=== PATIENT | female | born 1945 | race Caucasian/White ===

== ENCOUNTER 2022-05-17 11:16 | Emergency (ER) | payer OTHER, MEDICARE, SELFPAY ==
[2022-05-17 11:29] VITALS: BP 197/97; PULSE 75; RESP 36; TEMP 36.7; O2SAT 94; BMI 39.1
--- NOTE | 2022-05-17 11:44 | CRLHL7_ITS ---
For Patients: As a result of the Cures Act, medical imaging exams and procedure reports are released immediately into your electronic medical record. You may view this report before your referring provider. If you have questions, please contact your health care provider. INDICATION: Cough. TECHNIQUE: Chest 2 views. COMPARISON: Chest x-ray from 05/10/2021. FINDINGS: Lungs: Streaky interstitial opacities primarily in the right upper lobe. Pleura: No pleural effusion or pneumothorax. Heart and Mediastinum: The cardiomediastinal silhouette is enlarged. The vessels are unremarkable. Bones: Unremarkable. IMPRESSION: Right upper lobe opacity could be scarring or developing infection in the appropriate clinical setting. Dictated by Santana Oconnell MD @ 05/17/2022 1:41:30 PM (Electronically Signed)
--- NOTE | 2022-05-17 11:47 | ED_ITS ---
HPI - General Adult General Time Seen by Provider: 11:47 Date Seen: 05/17/22 Chief complaint: Shortness of Breath/Dyspnea Stated complaint: Shortness of breath Time Seen by Provider: 05/17/22 11:18 Source: patient Mode of arrival: ambulatory Limitations: no limitations History of Present Illness HPI narrative: Patient is a 77-year-old white female who has had a upper respiratory infection for the last few days, and has had some wheezing. She does not feel short of breath, or O2 sat is 94% on room air which is excellent. She reports she has no chronic respiratory or lung problems, she has had no chest pain, no leg swelling edema. She has been ambulatory without difficulty. No cyanosis. Denies leg swelling or edema. Related Data Home Medications Medication Instructions Recorded Confirmed levothyroxine 137 mcg capsule 137 mcg PO DAILY 05/17/22 05/17/22 losartan 50 mg tablet 50 mg PO DAILY 05/17/22 05/17/22 metoprolol tartrate 50 mg tablet 50 mg PO BID 05/17/22 05/17/22 multivitamin (Daily Multi-Vitamin 1 tab PO DAILY 05/17/22 05/17/22 tablet) Previous Rx's Medication Instructions Recorded doxycycline hyclate 100 mg capsule 100 mg PO BID #14 caps 05/17/22 prednisone 20 mg tablet 20 mg PO BID #10 tabs 05/17/22 Allergies Allergy/AdvReac Type Severity Reaction Status Date / Time No Known Drug Allergies Allergy Verified 05/17/22 11:29 Review of Systems Status of ROS: Reports: 6 or more systems reviewed and unremarkable except as noted in History and below Exam Narrative: Exam Narrative: Objective: The patient is a delightful lady who has stable vital signs other than slightly hypertensive, O2 sat is excellent at 94% on room air HEENT is unremarkable, throat clear, no facial asymmetry Neck is supple Chest shows some basilar wheezing, no rales Heart rhythm regular 2/6 systolic murmur Abdomen benign soft Extremities no edema Peripheral perfusion is good Skin is looks well perfused, no cyanosis Const: Vital Signs, click to edit/add: Vital Signs - 24 hr 05/17/22 11:29 Temperature 98.1 F Pulse Rate [Right Pulse Oximeter] 75 Respiratory Rate 36 H Blood Pressure [Ri ght Upper Arm] 197/97 H Pulse Oximetry 94 Oxygen Delivery Me thod Room Air Course Vital Signs Vital signs: Initial Vital Signs Temperature 98.1 F 05/17/22 11:29 Temperature Source Temporal Artery Scan 05/17/22 11:29 Pulse Rate 75 05/17/22 11:29 Respiratory Rate 36 H 05/17/22 11:29 Blood Pressure 197/97 H 05/17/22 11:29 Blood Pressure Mean 130 05/17/22 11:29 Blood Pressure Position Sitting 05/17/22 11:29 Pulse Oximetry 94 05/17/22 11:29 Oxygen Delivery Method 05/17/22 11:29 Vital Signs Temperature 98.1 F 05/17/22 11:29 Pulse Rate 75 05/17/22 11:29 Respiratory Rate 36 H 05/17/22 11:29 Blood Pressure 197/97 H 05/17/22 11:29 Pulse Oximetry 94 05/17/22 11:29 Oxygen Delivery Method 05/17/22 11:29 Temperature 98.1 F 05/17/22 11:29 Pulse Rate 75 05/17/22 11:29 Respiratory Rate 36 H 05/17/22 11:29 Blood Pressure 197/97 H 05/17/22 11:29 Pulse Oximetry 94 05/17/22 11:29 Oxygen Delivery Method 05/17/22 11:29 Medical Decision Making MDM Narrative Medical decision making narrative: Destiny is a very nice lady who has had an upper respiratory infection with some wheezing. There has been an extremely prominent amount of influenza COVID and RSV in the community. At this point her O2 sat is excellent and she feels like ?I am getting better?. Given her symptomology however I think an x-ray would be appropriate of her chest, will also get a triple swab of her nose, and give her prednisone 50 orally, followed by 20 b.i.d. for the next 5 days. She will foll ow up with regular doctor in the next 2 days, and return to ED sooner problems concerns worsening. She and her friend were comfortable plan was she will follow up as directed. She will inform her children who live in [place] about her status as well. Addendum: Patient by my read her x-ray shows questionable right upper lobe infiltrate, this could be just atelectasis as well or chronic scarring. Because of her symptomology however would cover her with doxycycline 100 b.i.d. x7 days as well as a prednisone. Recheck with regular doctor in couple of days, return to ED sooner problems or concerns. Lab Data Labs: Lab Results 05/17/22 Range/Units 11:45 SARS-CoV-2 (PCR) Negative SARS-CoV-2 (Negative) Influenza Type A (PCR) Negative PCR FLU A (Negative) Influenza Type B (PCR) Negative PCR FLU B (Negative) RSV (PCR) POSITIVE PCR RSV A (Negative) Discharge Plan Discharge Clinical Impression: Acute upper respiratory infection, Acute bronchospasm Patient Disposition: Home w/ Parent or Adult Condition: Stable Additional Instructions: Light activity, prednisone 2 times a day for the next 5 days, diet as tolerated, recheck with regular doctor in the next 2 days, return to ED sooner problems concerns worsening. Activity Level: Light activity Discharge Diet: Regular Prescriptions: New prednisone 20 mg tablet 20 mg PO BID Qty: 10 0RF doxycycline hyclate 100 mg capsule 100 mg PO BID Qty: 14 0RF No Action losartan 50 mg tablet 50 mg PO DAILY metoprolol tartrate 50 mg tablet 50 mg PO BID levothyroxine 137 mcg capsule 137 mcg PO DAILY multivitamin [Daily Multi-Vitamin] Tablet 1 tab PO DAILY Stand Alone Forms: [employer] Info Instructions
[2022-05-17] MEDS: predniSONE 10 MG TABLET 50 MG PO (12:06)
[2022-05-17 12:35] LABS: PCR FLU A Negative PCR FLU A (Negative); PCR FLU B Negative PCR FLU B (Negative); PCR RSV POSITIVE PCR RSV (Negative)
[2022-05-17 12:42] LABS: SARS PCR* Negative SARS-CoV-2 (Negative)
--- NOTE | 2022-05-17 12:45 | ED_ITS ---
HPI - General Adult General Chief complaint: Shortness of Breath/Dyspnea Stated complaint: Shortness of breath Time Seen by Provider: 05/17/22 11:18 Source: patient Mode of arrival: ambulatory Limitations: no limitations Related Data Home Medications Medication Instructions Recorded Confirmed levothyroxine 137 mcg capsule 137 mcg PO DAILY 05/17/22 05/17/22 losartan 50 mg tablet 50 mg PO DAILY 05/17/22 05/17/22 metoprolol tartrate 50 mg tablet 50 mg PO BID 05/17/22 05/17/22 multivitamin (Daily Multi-Vitamin 1 tab PO DAILY 05/17/22 05/17/22 tablet) Previous Rx's Medication Instructions Recorded doxycycline hyclate 100 mg capsule 100 mg PO BID #14 caps 05/17/22 prednisone 20 mg tablet 20 mg PO BID #10 tabs 05/17/22 Allergies Allergy/AdvReac Type Severity Reaction Status Date / Time No Known Drug Allergies Allergy Verified 05/17/22 11:29 Exam Const: Vital Signs, click to edit/add: Vital Signs - 24 hr 05/17/22 11:29 Temperature 98.1 F Pulse Rate [Right Pulse Oximeter] 75 Respiratory Rate 36 H Blood Pressure [Ri ght Upper Arm] 197/97 H Pulse Oximetry 94 Oxygen Delivery Me thod Room Air Course Vital Signs Vital signs: Initial Vital Signs Temperature 98.1 F 05/17/22 11:29 Temperature Source Temporal Artery Scan 05/17/22 11:29 Pulse Rate 75 05/17/22 11:29 Respiratory Rate 36 H 05/17/22 11:29 Blood Pressure 197/97 H 05/17/22 11:29 Blood Pressure Mean 130 05/17/22 11:29 Blood Pressure Position Sitting 05/17/22 11:29 Pulse Oximetry 94 05/17/22 11:29 Oxygen Delivery Method 05/17/22 11:29 Vital Signs Temperature 98.1 F 05/17/22 11:29 Pulse Rate 75 05/17/22 11:29 Respiratory Rate 36 H 05/17/22 11:29 Blood Pressure 197/97 H 05/17/22 11:29 Pulse Oximetry 94 05/17/22 11:29 Oxygen Delivery Method 05/17/22 11:29 Temperature 98.1 F 05/17/22 11:29 Pulse Rate 75 05/17/22 11:29 Respiratory Rate 36 H 05/17/22 11:29 Blood Pressure 197/97 H 05/17/22 11:29 Pulse Oximetry 94 05/17/22 11:29 Oxygen Delivery Method 05/17/22 11:29 Medical Decision Making MDM Narrative Medical decision making narrative: Patient is positive for RSV, her chest x-ray by my view shows some right sided infiltrate which could be related RSV but because of her wheezing and cough would cover her with doxycycline 100 b.i.d. x7 days as well as prednisone as mention. Follow up with regular doctor next couple of days return sooner problems or concerns to the ED. Lab Data Labs: Lab Results 05/17/22 Range/Units 11:45 SARS-CoV-2 (PCR) Negative SARS-CoV-2 (Negative) Influenza Type A (PCR) Negative PCR FLU A (Negative) Influenza Type B (PCR) Negative PCR FLU B (Negative) RSV (PCR) POSITIVE PCR RSV A (Negative) Discharge Plan Discharge Clinical Impression: Acute upper respiratory infection, Acute bronchospasm Patient Disposition: Home w/ Parent or Adult Condition: Stable Additional Instructions: Light activity, prednisone 2 times a day for the next 5 days, diet as tolerated, recheck with regular doctor in the next 2 days, return to ED sooner problems concerns worsening. Activity Level: Light activity Discharge Diet: Regular Prescriptions: New prednisone 20 mg tablet 20 mg PO BID Qty: 10 0RF doxycycline hyclate 100 mg capsule 100 mg PO BID Qty: 14 0RF No Action losartan 50 mg tablet 50 mg PO DAILY metoprolol tartrate 50 mg tablet 50 mg PO BID levothyroxine 137 mcg capsule 137 mcg PO DAILY multivitamin [Daily Multi-Vitamin] Tablet 1 tab PO DAILY Stand Alone Forms: [employer] Info Instructions
== END 2022-05-17 12:53 | disposition home or self-care (01) ==
LOC: ED 12:43
PROVIDERS: Emergency Provider Family Medicine
DX: J06.9 Acute upper respiratory infection, unspecified (principal); J98.01 Acute bronchospasm
CPT/HCPCS: 71046; 87502; 87634; 87635; 99284; J7512

== ENCOUNTER 2023-03-07 08:51 | Outpatient (CLI) | payer MEDICARE, OTHER, SELFPAY | END 2023-03-07 08:52 | disposition home or self-care (01) | LOC: AMB 04-10 14:54 | PROVIDERS: Visit Provider Emergency Medicine | DX: R53.1 Weakness (principal) | CPT/HCPCS: A0425; A0429 ==

== ENCOUNTER 2023-03-07 09:14 | Emergency (ER) | payer OTHER, MEDICARE, SELFPAY ==
[2023-03-07] VITALS (32 sets, daily range): BP systolic 145–223; BP diastolic 73–147; PULSE 72–82; RESP 20; TEMP 36.4; O2SAT 91–98; BMI 37.8
--- NOTE | 2023-03-07 09:38 | ED.NURSE ---
Dr. Elmore asked for staff to stand patient up. Patient was very unsteady and weak left leg. Dr. Elmore requested a code stroke. This was paged and went to CT.
--- NOTE | 2023-03-07 09:38 | CRLHL7_ITS ---
For Patients: As a result of the Century Cures Act, medical imaging exams and procedure reports are released immediately into your electronic medical record. You may view this report before your referring provider. If you have questions, please contact your health care provider. CLINICAL HISTORY: Headache, neck pain and dizziness. TECHNIQUE: CTA neck with contrast bolus tracking. 3D angiographic rendering using maximum intensity projection (MIP) and images permanently archived. COMPARISON: None available. FINDINGS: The great vessels are patent. The common carotid arteries are patent. The proximal ICAs are patent without signficant stenoses by NASCET criteria. The more distal cervical ICAs are patent. The origins of the vertebral arteries are patent. The cervical segments of the vertebral arteries are patent. IMPRESSION: Patent cervical arterial vasculature without hemodynamically significant luminal stenosis. Please note that all CT scans at this facility use dose modulation, iterative reconstruction, and/or weight-based dosing when appropriate to reduce radiation dose to as low as reasonably achievable. Dictated by Angel Szymanski MD @ 03/07/2023 1:17:42 PM (Electronically Signed)
--- NOTE | 2023-03-07 09:38 | CRLHL7_ITS ---
For Patients: As a result of the Century Cures Act, medical imaging exams and procedure reports are released immediately into your electronic medical record. You may view this report before your referring provider. If you have questions, please contact your health care provider. CLINICAL HISTORY: Neck pain, headache, and dizziness. TECHNIQUE: CTA head with contrast bolus tracking. 3D angiographic rendering using maximum intensity projection (MIP) and images permanently archived. COMPARISON: None available. FINDINGS: There is an eccentric filling defect within the left distal basilar trunk, centered at the origin of the left superior cerebellar artery, suspicious for intraluminal thrombus. The left superior cerebellar artery is not well opacified. The basilar tip and the posterior cerebral arteries are patent. The remainder of the intracranial vasculature is patent. No evidence of cerebral aneurysm. IMPRESSION: Nonocclusive thrombus within the distal left basilar trunk, centered at the origin of the left superior cerebellar artery, and with poor opacification of the superior cerebral artery itself. Please note that all CT scans at this facility use dose modulation, iterative reconstruction, and/or weight-based dosing when appropriate to reduce radiation dose to as low as reasonably achievable. Dictated by Angel Szymanski MD @ 03/07/2023 1:24:29 PM (Electronically Signed)
--- NOTE | 2023-03-07 09:38 | CRLHL7_ITS ---
For Patients: As a result of the Century Cures Act, medical imaging exams and procedure reports are released immediately into your electronic medical record. You may view this report before your referring provider. If you have questions, please contact your health care provider. INDICATION: DIZZINESS TECHNIQUE: Head CT without contrast. COMPARISON: None. FINDINGS: Image quality is slightly degraded due to motion artifact and streak artifact. No intracranial hemorrhage or extra-axial fluid collection. No midline shift. Patent basal cisterns. No evidence of territorial infarct. There are nonspecific low attenuation white matter changes consistent with chronic microvascular disease. The visualized paranasal sinuses and mastoid air cells demonstrate no acute or significant findings. The visualized orbits are grossly unremarkable. No skull fractures. IMPRESSION: No evidence of acute intracranial abnormality. Specifically, no evidence of acute intracranial hemorrhage. Findings discussed DR. DUVALL at 9:57 a.m. Please note that all CT scans at this facility use dose modulation, iterative reconstruction, and/or weight-based dosing when appropriate to reduce radiation dose to as low as reasonably achievable. Dictated by Cristiano Kaplan MD @ 03/07/2023 10:00:49 AM (Electronically Signed)
--- NOTE | 2023-03-07 09:54 | ED_ITS ---
HPI - General Adult General Date Seen: 03/07/23 Chief complaint: Neuro Symptoms/Altered Deficit Stated complaint: Dizziness Time Seen by Provider: 03/07/23 09:24 Source: patient, EMS and RN notes reviewed Mode of arrival: EMS Limitations: no limitations History of Present Illness HPI narrative: Patient is a very pleasant 77-year-old woman who says she woke up this morning in her usual state of health. She got up, went to the bathroom, says she was in the bathroom when she noted sudden onset of feeling wobbly and off balance. She says she has had tinnitus for many years, it sounds like cicadas in general and she says she barely even notices it any more. However, at the time of onset of her feeling off balance, she noted an abrupt change in the tenderness such that it became more of an electrical hum. She does not note changes in hearing. She feels better she is lying still, but she was not able to walk, she has felt down, denies injuries. She does not have a headache, denies recent trauma. She does have some mild nausea, no vomiting. She has a history of hypertension for which she takes medications, she denies any history of prior stroke, coronary artery disease or other vascular disease, she does not have diabetes. No known AFib. Related Data Home Medications Medication Instructions Recorded Confirmed levothyroxine 137 mcg capsule 137 mcg PO DAILY 05/17/22 05/17/22 losartan 50 mg tablet 50 mg PO DAILY 05/17/22 05/17/22 metoprolol tartrate 50 mg tablet 50 mg PO BID 05/17/22 05/17/22 multivitamin (Daily Multi-Vitamin 1 tab PO DAILY 05/17/22 05/17/22 tablet) Previous Rx's Medication Instructions Recorded doxycycline hyclate 100 mg capsule 100 mg PO BID #14 caps 05/17/22 prednisone 20 mg tablet 20 mg PO BID #10 tabs 05/17/22 Allergies Allergy/AdvReac Type Severity Reaction Status Date / Time No Known Drug Allergies Allergy Verified 05/17/22 11:29 Review of Systems Status of ROS: Reports: 6 or more systems reviewed and unremarkable except as noted in History and below Exam Narrative: Exam Narrative: Vital signs reviewed, markedly hypertensive on arrival. In general, alert, nontoxic elderly woman. Head: Normocephalic, atraumatic. Eyes: Pupils are equal reactive, some vertigo noted on rightward gaze, ex traocular movements intact. ENT: No facial trauma. Neck: Supple, no bruits. Heart: Regular rate and rhythm, no murmur. Lungs: Clear, no increased work breathing. Abdomen: Soft and nontender. Extremities: No edema, pulses intact x4. Neurologic: Patient is alert, conversant, speech was normal at the time of my initial exam. Face symmetric. Strength equal in upper and lower extremities without drift. Ataxia in left arm and left leg with finger-nose and heel-ferguson testing. Attempted to have her stand and walk with a walker, she is able to take a step with her right leg, not able to coordinate movement of her left leg. Skin: Warm dry well perfused. Affect normal Const: Vital Signs, click to edit/add: Vital Signs - 24 hr 03/07/23 09:25 03/07/23 09:26 03/07/23 09:30 Temperature Pulse Rate 75 78 75 Pulse Rate [Pulse Oximeter] Respiratory Rate Blood Pressure 196/107 H Blood Pressure [Le ft Upper Arm] Pulse Oximetry 91 95 96 Oxygen Delivery Ks thod 03/07/23 09:38 03/07/23 09:39 03/07/23 09:44 Temperature 97.6 F Pulse Rate Pulse Rate [Pulse Oximeter] 75 Respiratory Rate 20 Blood Pressure 204/123 H Blood Pressure [Le ft Upper Arm] 223/110 H Pulse Oximetry 94 94 [facility] 03/07/23 09:56 03/07/23 09:57 03/07/23 10:00 Temperature Pulse Rate 77 76 74 Pulse Rate [Pulse Oximeter] Respiratory Rate Blood Pressure 145/103 H Blood Pressure [Le ft Upper Arm] Pulse Oximetry 96 97 95 Oxygen Delivery Ks thod 03/07/23 10:03 03/07/23 10:03 03/07/23 10:15 Temperature Pulse Rate 74 72 Pulse Rate [Pulse Oximeter] Respiratory Rate Blood Pressure 166/147 H Blood Pressure [Le ft Upper Arm] Pulse Oximetry 95 94 96 [facility] 03/07/23 10:16 03/07/23 10:17 03/07/23 10:22 Temperature Pulse Rate 73 75 72 Pulse Rate [Pulse Oximeter] Respiratory Rate Blood Pressure 175/91 H 158/98 H Blood Pressure [Le ft Upper Arm] Pulse Oximetry 91 94 95 Oxygen Delivery Me thod 03/07/23 10:27 03/07/23 10:30 03/07/23 10:32 Temperature Pulse Rate 80 81 79 Pulse Rate [Pulse Oximeter] Respiratory Rate Blood Pressure 162/111 H 169/87 H Blood Pressure [Le ft Upper Arm] Pulse Oximetry 93 92 93 Oxygen Delivery Me thod 03/07/23 10:33 03/07/23 11:10 03/07/23 11:12 Temperature Pulse Rate 78 81 Pulse Rate [Pulse Oximeter] Respiratory Rate Blood Pressure 173/73 H Blood Pressure [Le ft Upper Arm] Pulse Oximetry 93 94 Oxygen Delivery Me thod 03/07/23 11:15 03/07/23 11:16 03/07/23 11:22 Temperature Pulse Rate 79 79 81 Pulse Rate [Pulse Oximeter] Respiratory Rate Blood Pressure 157/83 H 156/80 H Blood Pressure [Le ft Upper Arm] Pulse Oximetry 94 93 94 Oxygen Delivery Me thod Course Course ED Course: Patient arrived via EMS, vertigo not otherwise specified. Following my exam I d id call a stroke code, spoke with Dr. Donnelly with [facility] on-call for Neurology. She had aspirin 324 mg p.o.. Patient went for head CT without which by my review did not show hemorrhage, read as negative by Radiology. Neurology evaluated the patient as well, agreed with diagnosis of stroke. NIH stroke scale of 2, for 2 limb ataxia. Risks and benefits of tenecteplase were discussed with the patient and her son including small risk of intracranial hemorrhage. She agreed to proceed, did not have any limiting contraindications. She was given tenecteplase 22.5 mg IV. During her initial time in the emergency department, she complained of feeling worse in a nonspecific way, had more nausea, was given Zofran, then she said that she felt like she needed to have diarrhea. We were able to get her up to the commode and she did have a large volume of nonbloody diarrhea. She went over for CT angiogram of the head and neck after that. Continues to complain of some nausea in general GI upset. I am going to try giving her some metoclopramide along with a small dose of Benadryl to see if that helps her to feel better. She has had no point complained of headache. Her speech was mildly dysarthric when I went into evaluate her at 1 point, and her son says that is how she sounded earlier today, though this symptoms seems to wax and wane a little bit. Awaiting bed placement at [facility] where she has been accepted by the manager access. Patient had an EKG here which showed a normal sinus rhythm, she does have some inferior biphasic T-waves and ST depression, this looks unchanged compared to an EKG here in October of 2020. Troponin is less than 0.1. CBC is normal, hemoglobin is 13.9, coags are normal, metabolic panel is normal, blood sugar 133. LFTs unremarkable. Critical care time 60 minutes Vital Signs Vital signs: Initial Vital Signs Pulse Rate 75 03/07/23 09:25 Pulse Oximetry 91 03/07/23 09:25 Vital Signs Pulse Rate 75 03/07/23 09:25 Pulse Oximetry 91 03/07/23 09:25 Temperature 97.6 F 03/07/23 09:44 Pulse Rate 81 03/07/23 11:22 Respiratory Rate 20 03/07/23 09:44 Blood Pressure 156/80 H 03/07/23 11:22 Pulse Oximetry 94 03/07/23 11:22 Oxygen Delivery Method Room Air 03/07/23 09:44 Medical Decision Making Lab Data Labs: Lab Results 03/07/23 Range/Units 09:25 WBC 9.39 (4.50-11.00) K/uL RBC 4.32 (4.00-5.20) m/uL Hgb 13.9 (12.0-16.0) gm/dL Hct 42.4 (33.0-51.0) % MCV 98 (80-100) fL MCH 32 (26-34) pg MCHC 33 (32-36) gm/dL RDW Coeff of [place] 12.8 (11.5-15.5) % Plt Count 274 (140-440) K/uL Neut % (Auto) 59.6 (42.0-72.0) % Lymph % (Auto) 24.1 (20-44) % [place] % (Auto) 9.6 (0.0-11.0) % Eos % (Auto) 6.1 (0.0-7.0) % Baso % (Auto) 0.5 (0.0-3.0) % Neut # (Auto) 5.60 (1.7-7.0) K/uL Lymph # (Auto) 2.26 (0.90-2.90) K/uL [place] # (Auto) 0.90 (0.00-0.90) K/UL Eos # (Auto) 0.57 H (0.00-0.50) K/uL Baso # (Auto) 0.05 (0.00-0.30) K/uL Abs Immat Gran (auto) 0.01 (0.00-0.30) K/uL Imm/Tot Granulo (auto) 0.1 % INR 1.03 (0.91-1.10) APTT 30 (23-33) Seconds Sodium 141 (135-149) mmol/L Potassium 4.0 (3.6-5.1) mmol/L Chloride 108 (96-114) mmol/L Carbon Dioxide 21 (20-32) mmol/L Anion Gap 12 (7-15) mEq/L BUN 19 (7-30) mg/dL Creatinine 1.0 (0.5-1.5) mg/dL Estimated Creat Clear 34.42 Estimated GFR 57 ml/min Glucose 133 H (60-115) mg/dL Calcium 10.1 (8.4-10.6) mg/dL Total Bilirubin 0.6 (0.1-1.5) mg/dL Direct Bilirubin 0.0 (0.0-0.5) mg/dL AST 27 (12-35) U/L ALT 27 (4-35) U/L Alkaline Phosphatase 118 (40-150) U/L Troponin I < 0.01 L (0.01-0.04) ng/mL Total Protein 6.9 (6.0-8.3) g/dL Albumin 4.1 (3.3-5.0) g/dL Discharge Plan Discharge Prescriptions: No Action losartan 50 mg tablet 50 mg PO DAILY metoprolol tartrate 50 mg tablet 50 mg PO BID levothyroxine 137 mcg capsule 137 mcg PO DAILY multivitamin [Daily Multi-Vitamin] Tablet 1 tab PO DAILY prednisone 20 mg tablet 20 mg PO BID Qty: 10 0RF doxycycline hyclate 100 mg capsule 100 mg PO BID Qty: 14 0RF Follow Up/Referrals: Provider,Not a Local [Primary Care Provider] -
[2023-03-07 10:01] LABS: Basophils Absolute Auto 0.05 K/uL (0.00-0.30); Basophils Percent Auto 0.5 % (0.0-3.0); Eosinophils Absolute Auto 0.57 K/uL (0.00-0.50); Eosinophils Percent Auto 6.1 % (0.0-7.0); Hematocrit 42.4 % (33.0-51.0); Hemoglobin* 13.9 gm/dL (12.0-16.0); Immature Granulocytes Abs Auto 0.01 K/uL (0.00-0.30); Immature Granulocytes Pct Auto 0.1 %; Lymphocytes Absolute Auto 2.26 K/uL (0.90-2.90); Lymphocytes Percent Auto 24.1 % (20-44); Mean Corpuscular HGB Conc 33 gm/dL (32-36); Mean Corpuscular Hemoglobin 32 pg (26-34); Mean Corpuscular Volume 98 fL (80-100); Monocytes Percent Auto 9.6 % (0.0-11.0); Neutrophils Percent Auto 59.6 % (42.0-72.0); Platelet Count* 274 K/uL (140-440); RDW Coefficient of Variation % 12.8 % (11.5-15.5); Red Blood Count 4.32 m/uL (4.00-5.20); White Blood Count* 9.39 K/uL (4.50-11.00)
[2023-03-07 10:11] LABS: Albumin* 4.1 g/dL (3.3-5.0); Chloride* 108 mmol/L (96-114); Sodium* 141 mmol/L (135-149)
[2023-03-07 10:12] LABS: INR 1.03 (0.91-1.10); Prothrombin Time 14.1 Seconds
[2023-03-07 10:13] LABS: Partial Thromboplastin Time* 30 Seconds (23-33)
[2023-03-07 10:14] LABS: Alanine Aminotransferase* 27 U/L (4-35); Alkaline Phosphatase* 118 U/L (40-150); Anion Gap 12 mEq/L (7-15); Aspartate Amino Transferase* 27 U/L (12-35); Bilirubin Total* 0.6 mg/dL (0.1-1.5); Blood Urea Nitrogen* 19 mg/dL (7-30); Calcium* 10.1 mg/dL (8.4-10.6); Carbon Dioxide* 21 mmol/L (20-32); Est. Creatinine Clearance* 34.42; Estimated Glomerular Filt Rate 57 ml/min; Glucose* 133 mg/dL (60-115); Total Protein* 6.9 g/dL (6.0-8.3)
[2023-03-07] MEDS: TENECTEPLASE 5 MG/ML inj 22.5 MG IVP (10:17)
[2023-03-07] MEDS: 0.9 % SODIUM CHLORIDE 1000 ml 1,000 ML 75 ML IV (10:20)
[2023-03-07] MEDS: ONDANSETRON 2 MG/ML inj 4 MG IVP (10:20)
[2023-03-07 10:28] LABS: Slide Review Reflex No
[2023-03-07 10:29] LABS: Troponin I* < 0.01 ng/mL (0.01-0.04)
--- NOTE | 2023-03-07 10:52 | ED.NURSE ---
Patient to CT for CT angio
--- NOTE | 2023-03-07 11:02 | ED.NURSE ---
Patient complained of extreme nausea, abdominal upset and need to have bowel movement. She insisted on sitting on commode. She was helped to commode with assist of two and had large and watery BM. Symptoms of vertigo has worsened since arrival.
[2023-03-07] MEDS: diphenhydrAMINE 50 MG/ML inj 12.5 MG IVP (11:46)
[2023-03-07] MEDS: METOCLOPRAMIDE HCL 10 MG in 0.9 % SODIUM CHLORIDE 100 ml 100 ML 306 MG IVPB (11:46)
--- NOTE | 2023-03-07 12:09 | ED.NURSE ---
Patient's sats dropped following benedryl administration. Oxygen via NC was placed and MD was notified.
--- NOTE | 2023-03-07 12:10 | ED.NURSE ---
[facility] here for patient and unit was updated on time of departure.
== END 2023-03-07 12:23 | disposition other institution (70) ==
PROVIDERS: Emergency Provider Emergency Medicine
DX: I63.9 Cerebral infarction, unspecified (principal); R47.1 Dysarthria and anarthria
CPT/HCPCS: 36415; 70450; 70496; 70498; 80048; 80076; 84484; 85025; 85610; 85730; 93005; 94761; 96374; 96375; 99285; 99291; G0508; J1200; J2405; J2765; J3101; J7030; Q9967

== ENCOUNTER 2023-03-07 12:11 | Outpatient (CLI) | payer OTHER, MEDICARE, SELFPAY | END 2023-03-07 12:12 | disposition home or self-care (01) | LOC: AMB 04-10 15:27 | PROVIDERS: Visit Provider Emergency Medicine | DX: I63.9 Cerebral infarction, unspecified (principal) | CPT/HCPCS: A0425; A0427; A0429 ==